=== PATIENT | male | born 1980 | race African-American/Black ===

== ENCOUNTER 2018-03-16 21:06 | Emergency (ER) | payer MEDICAID ==
[~2018-03-16] VITALS: Ht 182.9 cm; Wt 95.3 kg
[~2018-03-16 21:06] MED LIST: [UNRECOGNIZED DRUG - OTHER]
[2018-03-16 21:13] VITALS: BP 132/68
[2018-03-16] MEDS ORDERED: ASPirin 81 mg TAB PO ONE (21:30)
[2018-03-16] MEDS ORDERED: SODIUM CHLOR 0.9% PF (SALINE LOCK) 10ML VIAL/SYR IV SCH (22:00)
[2018-03-16] MEDS ORDERED: IOHEXOL 350 MG/ML 100ML IJ ONE (22:17)
[2018-03-18] MEDS ORDERED: ASPirin 81 mg TAB PO SCH (10:00)
== END 2018-03-16 23:27 | disposition left against medical advice (07) ==
LOC: EDBD 21:06 → ER 21:10
DX: R07.89 Other chest pain (principal); I11.0 Hypertensive heart disease with heart failure; I50.9 Heart failure, unspecified; I25.2 Old myocardial infarction; F17.210 Nicotine dependence, cigarettes, uncomplicated; F12.10 Cannabis abuse, uncomplicated
CPT/HCPCS: 93005; 94761